=== PATIENT | female | born 1970 | race Caucasian/White ===

== ENCOUNTER 2018-09-18 12:17 | Emergency (ER) | payer OTHER ==
[~2018-09-18] VITALS: Ht 157.5 cm; Wt 68.2 kg
[2018-09-18 12:20] VITALS: Ht 157.5 cm; Wt 68.2 kg
[2018-09-18] MEDS ORDERED: LIPITOR20 MG PO (12:22)
[2018-09-18] MEDS ORDERED: ZOLOFT50 MG PO (12:23)
[2018-09-18] MEDS ORDERED: MOBIC7.5 MG PO (12:23)
[2018-09-18] MEDS ORDERED: OMEPRAZOLE20 M1 PO (12:23)
[2018-09-18] MEDS ORDERED: AMBIEN5 MG PO (12:24)
[2018-09-18] MEDS ORDERED: VOLTAREN75 MG PO (13:39)
[2018-09-18 14:06] VITALS: BP 127/85
== END 2018-09-18 13:53 | disposition home or self-care (01) ==
LOC: D.ER 12:17
DX: M25.512 Pain in left shoulder (principal); V49.9XXA Car occupant (driver) (passenger) injured in unspecified traffic accident, initial encounter; Y93.89 Activity, other specified; Y92.488 Other paved roadways as the place of occurrence of the external cause

== ENCOUNTER 2020-08-24 09:46 | Day surgery (SDC) | payer MEDICAID ==
[~2020-08-24] VITALS: Ht 157.5 cm; Wt 76.2 kg
[~2020-08-24 09:46] MED LIST: AMBIEN5 MG PO; LIPITOR20 MG PO; MOBIC7.5 MG PO; OMEPRAZOLE20 M1 PO; VOLTAREN75 MG PO; ZOLOFT50 MG PO
[2020-08-24 10:17] LABS: HEMOGLOBIN 14.6 g/dL (12-16); MCHC 33.2 g/dL (31.0-37.0); MCV 87.3 fL (80.0-100.0); MEAN PLATELET VOLUME 11.7 fL (7.4-10.4); RBC 5.04 10x6/uL (4.00-5.40); RDW 15.9 % (11.5-14.5)
[2020-08-24 10:31] LABS: HCG SERUM NEGATIVE (NEGATIVE)
[2020-08-24] MEDS ORDERED: KLONOPIN1 MG (11:01)
[2020-08-24 11:05] VITALS: BP 120/70; Ht 157.5 cm; Wt 76.2 kg
== END 2020-08-24 15:05 | disposition home or self-care (01) ==
LOC: D.OPS 09:46
PROVIDERS: Anesthesiology; ATTEND Obstetrics & Gynecology Maternal & Fetal Medicine
DX: N95.0 Postmenopausal bleeding (principal); I25.10 Atherosclerotic heart disease of native coronary artery without angina pectoris